=== PATIENT | male | born 1965 | race Caucasian/White ===

== ENCOUNTER 2025-02-06 09:48 | Day surgery (SDC) | payer OTHER ==
[2025-02-06] VITALS (15 sets, daily range): BP systolic 98–158; BP diastolic 66–87
[~2025-02-06] VITALS: Ht 175.3 cm; Wt 106.0 kg
[~2025-02-06 09:48] MED LIST: AMLO5 PO; ASPI325EC PO; B Complex1 EAC2 PO; Benazepril HCl40 MG PO; CHOL10002 PO; FAMO10 PO; FISH OIL 1,0001 EA10 PO; FISH1000 PO; Flonase 0.05% N16 GM; GLIP10 PO; Lactated Ringer's 1,000 ML IV SCH; Metformin HCl850 MG PO; Multiple Vitam1 EAC1 PO; OZEMPIC0.25 MG/02 SC; PIOG15 PO; RANI150; UBID10; ZOCOR20 MG PO
[2025-02-06] MEDS ORDERED: propofoL 40 ML IV ONE (11:31)
--- NOTE | 2025-02-06 11:31 | NUR ---
History, Chart, Medications and Allergies reviewed before start of procedure. Patient up to Ambulate independently. Gait steady. Pre-Op teaching done. Pt verbalizes understanding. Patient confirms NPO status and agrees with scheduled surgery. Patient States Post-Procedure ride home has been arranged.
--- NOTE | 2025-02-06 11:39 | NUR ---
02/06/25 1139 Anna Zuluaga CONFIRMED AND REVIEWED H&P, MEDCICATIONS, ALLERGIES, MEDICAL HISTORY, RESPIRATORY HISTORY, VITAL SIGNS, 3-LEAD EKG, CONSENTS, AND PHYSICIAN ORDERS. PATIENT CONFIRMS NPO STATUS AND AGREES WITH SCHEDULED PROCEDURE. MONITOR INTACT WITH CONTINUOUS PULSE OXIMETRY, CAPNOGRAPHY, 3-LEAD EKG, INTERMITTENT BP. SUPPLEMENTAL O2 TO BE TITRATED THROUGHOUT PROCEDURE TO MAINTAIN O2 SATURATION ABOVE 90%. PATIENT DETERMINED TO BE ASA APPROPRIATE FOR PROPOFOL SEDATION PRIOR TO START OF PROCEDURE BY DR. CONNORS MALLAMPATI CLASS 2 AIRWAY: COMPLETE VISUALIZATION OF THE UVULA.
--- NOTE | 2025-02-06 12:34 | NUR ---
DISCHARGE NOTE PT A&OX4, BREATHING RA, VSS, TOLERATING PO FLUIDS, TEETH PLACED BACK IN PT MOUTH. AT BEDSIDE. Patient up to Ambulate independently. Gait steady. Discharge instructions reviewed with patient. Patient verbalizes understanding. Copy given to patient to take home. Discharged via wheelchair to private car for ride home.WITH ALL BELONGINGS.
== END 2025-02-06 12:30 | disposition home or self-care (01) ==
LOC: ORSCMMR 09:48 → ORD 11:00 → ORSCMMR 12:30
PROVIDERS: Internal Medicine Gastroenterology
PROC: 0DBH8ZX Excision of Cecum, Via Natural or Artificial Opening Endoscopic, Diagnostic (ICD-10-PCS; principal; 2025-02-06 11:00)
PROC: 0DBK8ZX Excision of Ascending Colon, Via Natural or Artificial Opening Endoscopic, Diagnostic (ICD-10-PCS; principal; 2025-02-06 11:00)
DX: Z12.11 Encounter for screening for malignant neoplasm of colon (principal); Z86.0100 Personal history of colon polyps, unspecified; D12.0 Benign neoplasm of cecum; D12.2 Benign neoplasm of ascending colon; K64.8 Other hemorrhoids; E11.9 Type 2 diabetes mellitus without complications; I10 Essential (primary) hypertension; E78.00 Pure hypercholesterolemia, unspecified; Z87.891 Personal history of nicotine dependence; Z79.84 Long term (current) use of oral hypoglycemic drugs; Z79.85 Long-term (current) use of injectable non-insulin antidiabetic drugs; Z79.899 Other long term (current) drug therapy
CPT/HCPCS: 82947; 88305; J2704; J7120